=== PATIENT | male | born 1995 | race Caucasian/White ===

== ENCOUNTER 2020-12-02 14:02 | Emergency (ER) | payer OTHER ==
[2020-12-02] MEDS ORDERED: KEFLEX250 MG PO (15:53)
== END 2020-12-02 16:08 | disposition home or self-care (01) ==
LOC: FER 14:02
DX: S61.011A Laceration without foreign body of right thumb without damage to nail, initial encounter (principal); Z23 Encounter for immunization; W29.8XXA Contact with other powered hand tools and household machinery, initial encounter; Y92.009 Unspecified place in unspecified non-institutional (private) residence as the place of occurrence of the external cause
CPT/HCPCS: 73140; 90471; 90715